=== PATIENT | male | born 1995 | race Two or more races ===

== ENCOUNTER 2021-07-29 18:59 | Emergency (ER) | payer OTHER ==
[~2021-07-29] VITALS: Ht 160 cm; Wt 68.0 kg
[2021-07-29 19:12] VITALS: BP 137/87
== END 2021-07-29 19:15 | disposition left against medical advice (07) ==
LOC: ER 19:03
DX: T18.2XXA Foreign body in stomach, initial encounter (principal); Z53.21 Procedure and treatment not carried out due to patient leaving prior to being seen by health care provider; X58.XXXA Exposure to other specified factors, initial encounter; Y93.89 Activity, other specified; Y92.89 Other specified places as the place of occurrence of the external cause; Y99.8 Other external cause status